=== PATIENT | male | born 1955 | race Two or more races ===

== ENCOUNTER 2022-05-16 10:42 | Outpatient (CLI) | payer OTHER | END 2022-05-16 10:43 | disposition home or self-care (01) | LOC: NUCLEAR 10:42 | PROVIDERS: ATTEND Internal Medicine Hematology & Oncology | DX: C18.3 Malignant neoplasm of hepatic flexure (principal); Z88.0 Allergy status to penicillin | CPT/HCPCS: 78816; A9552 ==

== ENCOUNTER 2022-10-18 07:17 | Outpatient (CLI) | payer OTHER | END 2022-10-18 07:18 | disposition home or self-care (01) | LOC: NUCLEAR 07:17 | PROVIDERS: ATTEND Internal Medicine Hematology & Oncology | DX: C61 Malignant neoplasm of prostate (principal); C79.51 Secondary malignant neoplasm of bone | CPT/HCPCS: 78306; A9503 ==

== ENCOUNTER 2025-01-28 08:00 | Outpatient (CLI) | payer OTHER | END 2025-01-28 08:12 | disposition home or self-care (01) | LOC: MRI 08:00 | PROVIDERS: ATTEND Orthopaedic Surgery | DX: S83.242A Other tear of medial meniscus, current injury, left knee, initial encounter (principal); X58.XXXA Exposure to other specified factors, initial encounter; Y93.9 Activity, unspecified; Y92.9 Unspecified place or not applicable; Y99.9 Unspecified external cause status | CPT/HCPCS: 73721 ==